=== PATIENT | male | born 1985 | race Caucasian/White ===

== ENCOUNTER 2021-03-12 08:44 | Emergency (ER) | payer OTHER ==
[~2021-03-12] VITALS: Ht 175.3 cm; Wt 98.3 kg
[2021-03-12] MEDS ORDERED: NEOSPORIN OINT. PKT 1 PACKET ONE (09:25)
[2021-03-12] MEDS ORDERED: ONDANSETRON ODT 4 MG PO ONE (10:00)
[2021-03-12] MEDS ORDERED: OXYcodone/APAP 7.5/325MG TABLET PO ONE (10:00)
[2021-03-12] MEDS ORDERED: OXYcodone/APAP 7.5/325MG TABLET ONE (10:04)
[2021-03-12] MEDS ORDERED: ONDANSETRON ODT 4 MG ONE (10:04)
--- NOTE | 2021-03-12 10:13 | NUR ---
dr cruz spoke with dr dueñas
[2021-03-12] MEDS ORDERED: SODIUM CHLORIDE FLUSH 10ML SYR IVF ONE (11:00)
[2021-03-12] MEDS ORDERED: PROPOFOL 10 MG/ML, 20ML IV ONE (11:00)
[2021-03-12] MEDS ORDERED: PROPOFOL 10 MG/ML, 20ML ONE (11:01)
--- NOTE | 2021-03-12 12:15 | NUR ---
-POST SEDATION PATIENT RSI SCORE OF [address] TEST AND PO CHALLENGE UNREMARKABLE DISTAL CMS TO LEFT HAND INTACT REVIEWED POC
[2021-03-12 12:38] VITALS: BP 110/79
== END 2021-03-12 12:40 | disposition home or self-care (01) ==
LOC: ED 10:24
DX: S52.572A Other intraarticular fracture of lower end of left radius, initial encounter for closed fracture (principal); J45.909 Unspecified asthma, uncomplicated; V29.9XXA Motorcycle rider (driver) (passenger) injured in unspecified traffic accident, initial encounter; Y93.89 Activity, other specified; Y92.410 Unspecified street and highway as the place of occurrence of the external cause; Y99.8 Other external cause status
CPT/HCPCS: 25605; 73100; 73110; 76000; 99285; J2704; Q0162